=== PATIENT | female | born 1990 | race Caucasian/White ===

== ENCOUNTER 2017-01-29 06:28 | Day surgery (SDC) | payer OTHER ==
[2017-01-29] MEDS ORDERED: LIDOCAINE 1% 2 ML INJ ID PRN (06:39)
[2017-01-29] MEDS ORDERED: LR 1,000 ML IV ONE (06:39)
[2017-01-29] MEDS ORDERED: BUPIVACAINE 0.25% 30 ML SDV ONE (06:42)
[2017-01-29] MEDS ORDERED: ceFAZolin 1 GM/5 ML SYR ONE (06:43)
[2017-01-29] MEDS ORDERED: BUPIVACAINE/EPI 0.5% 30 ML SDV ONE (06:45)
[2017-01-29] MEDS ORDERED: ceFAZolin 2 GM/DEXTROSE 100 ML IV ONE (07:00)
--- NOTE | 2017-01-29 07:01 | PDHPUP ---
History & Physical Update H&P update statement: This history and physical update is based on an assessment of the patient which was completed after admission or registration (within 24 hours), but prior to the surgery/procedure.
[2017-01-29] MEDS ORDERED: MIDAZOLAM 2 MG/2 ML VIAL IVP ONE (07:19)
--- NOTE | 2017-01-29 07:22 | PDANEPAE ---
ANE Past Medical History - Cardiovascular History Hx Hypertension: No Hx Arrhythmias: No Hx Chest Pain: No Hx Coronary Artery / Peripheral Vascular Disease: No Hx CHF / Valvular Disease: No Hx Palpitations: No - Pulmonary History Hx COPD: No Hx Asthma/Reactive Airway Disease: No Hx Recent Upper Respiratory Infection: No Hx Oxygen in Use at Home: No Hx Sleep Apnea: No Sleep Apnea Screening Result - Last Documented: Negative Pulmonary History Comment: HX OF PNA - Neurologic History Hx Cerebrovascular Accident: No Hx Seizures: No Hx Dementia: No - Endocrine History Hx Diabetes: No - Renal History Hx Renal Disorders: No - Liver History Hx Hepatic Disorders: No - Neurological & Psychiatric Hx Hx Neurological and Psychiatric Disorders: No - Cancer History Hx Cancer: No - Congenital Disorder History Hx Congenital Disorders: No - GI History Hx Gastrointestinal Disorders: No - Other Health History Other Health History: DOESN'T WEAR GLASSES OFTEN - Chronic Pain History Chronic Pain: No - Surgical History Prior Surgeries: NA ANE Review of Systems Review of Systems: - Exercise capacity METS (RN): 4 METS ANE Patient History - Allergies Allergies/Adverse Reactions: No Known Allergies Allergy (Verified 01/08/17 10:19) - Home Medications Home Medications: Herbals/Supplements -Info Only 01/08/17 [Last Taken Unknown] - NPO status NPO Since - Liquids (Date): 01/28/17 NPO Since - Liquids (Time): 22:00 NPO Since - Solids (Date): 01/28/17 NPO Since - Solids (Time): 21:00 - Anes Hx Anes Hx: no prior problems - Smoking Hx Smoking Status: Never smoked - Family Anes Hx Family Hx Anesthesia Complications: NONE ANE Labs/Vital Signs - Vital Signs Blood Pressure: 127/85 Heart Rate: 68 Respiratory Rate: 18 O2 Sat (%): 97 Height: 165.1 cm Weight: 58.06 kg ANE Physical Exam - Airway Neck exam: FROM Mallampati Score: Class 1 Mouth exam: normal dental/mouth exam - Pulmonary Pulmonary: no respiratory distress, no rales or rhonchi, clear to auscultation - Cardiovascular Cardiovascular: regular rate and rhythym, no murmur, rub, or gallop - ASA Status ASA Status: I ANE Anesthesia Plan Anesthesia Plan: GA with mask
[2017-01-29] MEDS ORDERED: PROPOFOL/EMULSION 500 MG/50 ML BOTTLE IV ONE (07:35)
[2017-01-29] MEDS ORDERED: fentaNYL 100 MCG/2 ML INJ ONE (07:37)
[2017-01-29] MEDS ORDERED: DEXAMETHASONE 4 MG/ML VIAL ONE (07:52)
[2017-01-29] MEDS ORDERED: ONDANSETRON 4 MG/2 ML VIAL ONE ×2 (07:56→08:34)
[2017-01-29] MEDS ORDERED: LIDOCAINE 2% 5 ML SDV ONE (07:56)
[2017-01-29] MEDS ORDERED: LR 500 ML IV PRN (08:16)
[2017-01-29] MEDS ORDERED: MEPERIDINE 25 MG/ML SYR IVP PRN (08:16)
[2017-01-29] MEDS ORDERED: PROMETHAZINE HCL 25 MG/ML INJ IVP PRN (08:16)
[2017-01-29] MEDS ORDERED: METOCLOPRAMIDE 10 MG/2 ML VIAL IVP PRN (08:16)
[2017-01-29] MEDS ORDERED: NALOXONE HCL 0.4 MG/ML INJ IVP PRN (08:16)
[2017-01-29] MEDS ORDERED: ONDANSETRON 4 MG/2 ML VIAL IVP PRN (08:16)
[2017-01-29] MEDS ORDERED: fentaNYL 100 MCG/2 ML INJ IVP PRN (08:16)
[2017-01-29 08:41] VITALS: TEMP 97.3
--- NOTE | 2017-01-29 08:46 | POSTANESTH ---
Post Anesthetic Evaluation Cardiovascular Status: Normal, Stable, Similar to Pre-Op Cond Respiratory Status: Normal, Stable, Similar to Pre-op Cond. Level of Consciousness/Mental Status: Can Participate in Eval, Alert and Oriented Pain Control: Adequate, Prn Tx Ordered Nausea/Vomiting Control: Adequate, Prn Tx Ordered Complications Possibly Related to Anesthesia: None Noted
[2017-01-29 09:00] VITALS: RESP 16
[2017-01-29 09:14] VITALS: BP 118/80; PULSE 60; O2SAT 97
--- NOTE | 2017-01-29 14:24 | GOP ---
[f rep st] OPERATIVE REPORT DATE OF OPERATION: 01/29/2017 SURGEON: Adam Zuleta DPM ANESTHESIOLOGIST: Jagjit Caballero MD. PREOPERATIVE DIAGNOSIS: Harsh deformity, Achilles tendonitis and bursitis, left heel. POSTOPERATIVE DIAGNOSIS: Harsh deformity, Achilles tendonitis and bursitis, left heel. PROCEDURE PERFORMED: Excision of Harsh deformity and removal of scarred bursal sac, left heel. FINDINGS: DESCRIPTION OF PROCEDURE: The patient was taken to the operating room and placed on the table in a s upine position. Local anesthetic was administered by Dr. Zuleta during concomitant IV sedation by Dr. Caballero. The patient's left foot, ankle, and lower leg were prepped and draped in the usual aseptic ma nner establishing a sterile field for surgery. Disposable pneumatic tourniquet over heavy Kerlix padd ing at ankle level was inflated to 225 mmHg following sterile Esmarch bandage exsanguination of the f oot. This provided intraoperative hemostasis. A skin knife made a 6-cm linear incision along the posterolateral border of the calcaneus from the tafoya perior portion of the calcaneus inferiorly. This incision was centered over the prominent bone. The i ncision was deepened, bleeding vessels clamped and bovied, vital structures identified and retracted, and soft tissue planes were developed immediately superficial to the tendon expansion in the posteri or, superior, and lateral aspect of the calcaneus. Now a 15 blade made a linear incision to bone allowing for reflection of the tendon expansion and per iosteum medial and lateral providing excellent exposure of the very prominent spur enlargement which was projecting posteriorly exactly at the point of maximum clinical irritation. Fortunately, minimal reflection of the insertion of the Achilles tendon was necessary. Utilizing osteotome and mallet, the calcaneus was remodeled, removing the bone spur and the enlargement in its entirety. Bone rasps then smoothed the cut bone area. A repeated copious antibiotic solution flush was performed. Adequate claudio unt of bone was removed and 2-0 Vicryl was utilized to reconstruct the tendon expansion laterally, 5- 0 Vicryl closed the subcutaneous tissues, and the skin was closed with 5-0 Prolene. Betadine-soaked A daptic was laid over the incision and the foot received a complete sterile dressing. The tourniquet w as released and digital circulation returned to normal immediately. Hemostasis was well maintained. T he patient was taken to recovery in good condition having tolerated surgery and anesthesia well. The estimated blood loss was minimal. No specimens. No complications. Postoperative instructions p reviously gone over were reinforced. Prognosis is good. SNR including below. /[id number]/MODL
== END 2017-01-29 09:31 | disposition home or self-care (01) ==
LOC: FSGY 06:28
PROVIDERS: ATTEND Podiatrist Primary Podiatric Medicine
PROC: 0QBM0ZZ Excision of Left Tarsal, Open Approach (ICD-10-PCS; principal; 2017-01-29 07:30)
DX: M77.32 Calcaneal spur, left foot (principal); M76.62 Achilles tendinitis, left leg
CPT/HCPCS: J0690; J1100; J2250; J2405; J2704; J3010